=== PATIENT | male | born 1950 | race Two or more races ===

== ENCOUNTER 2020-03-07 18:53 | Outpatient (CLI) | payer MEDICARE, OTHER | END 2020-03-07 18:54 | disposition home or self-care (01) | LOC: COV 18:53 | PROVIDERS: ATTEND Family Medicine | DX: U07.1 COVID-19 (principal) | CPT/HCPCS: 81599 ==

== ENCOUNTER 2020-09-05 12:36 | Outpatient (CLI) | payer MEDICARE, OTHER ==
[2020-09-05 12:50] LABS: CALCIUM 9.2 mg/dL (8.5-10.3); CREATININE 1.1 mg/dL (0.6-1.2)
[2020-09-05] MEDS ORDERED: IOVERSOL 320 50 ML VIAL ONE (12:52)
[2020-09-05] MEDS ORDERED: IOVERSOL 320 100 ML VIAL IVP ONE ×2 (12:52→15:47)
[2020-09-05] MEDS ORDERED: IOVERSOL 320 50 ML VIAL PO ONE (15:47)
--- NOTE | 2020-09-05 15:47 | CT Report ---
PROCEDURE: Abdomen/Pelvis W INDICATIONS: HEMATURIA CONTRAST: IV CONTRAST: Optiray 320 ml: 100 PO CONTRAST: Optiray 320 ml50 TECHNIQUE: After the administration of contrast, 5 mm thick sections acquired from the diaphragms to the sym physis. 5 mm thick coronal and sagittal reformats were acquired. For radiation dose reduction, the following was used: automated exposure control, adjustment of mA and/or kV according to patient size . COMPARISON: None. FINDINGS: Image quality: Excellent. ABDOMEN: Lung bases: Lung bases are clear. Heart size is normal. Solid organs: Liver and spleen are normal in size and enhancement. Gallbladder the gallbladder appe ars normal Biliary system is non dilated. Pancreas enhances normally. No adrenal nodules. Kidneys demonstrate normal size and enhancement, without hydronephrosis. Peritoneum and bowel: Bowel loops demonstrate normal wall thickness and caliber. No free fluid or a ir. Nodes and vessels: No retroperitoneal or mesenteric adenopathy by size criteria. Aorta and inferior vena cava are normal in size. Miscellaneous: No ventral hernias. PELVIS: Genitourinary: Bladder wall thickness is normal. Miscellaneous: No inguinal hernias or adenopathy. A normal appendix is found at the right lower wendy drant. Bones: No suspicious bony lesions. No vertebral body compression fractures. IMPRESSION: No hydronephrosis or nephrolithiasis found. A urothelial or renal cortical mass lesion i s not seen. Source of current hematuria is not found. 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 Reviewed by: Kenneth Hernandez MD on 09/05/2020 3:45 PM PST Approved by: Kenneth Hernandez MD on 09/05/2020 3:45 PM PST Station ID: [id number]
== END 2020-09-05 12:37 | disposition home or self-care (01) ==
LOC: DI 12:36
PROVIDERS: ATTEND Physician Assistant
DX: R31.9 Hematuria, unspecified (principal); R97.20 Elevated prostate specific antigen [PSA]
CPT/HCPCS: 36415; 74177; 80048; 84153; Q9967